=== PATIENT | male | born 1945 | race Caucasian/White ===

== ENCOUNTER 2018-08-01 13:54 | Outpatient (CLI) | payer OTHER ==
[2018-08-01 15:40] LABS: INR-International Normal Ratio 1.5; PTT 29.7 SEC (22.9-36.1); Prothrombin Time 17.9 SEC (12.0-14.7)
--- NOTE | 2018-08-01 15:45 | RAD ---
CHEST TWO VIEWS: History: Patient for preoperative evaluation. Comparison: 07-17-18 FINDINGS: Bilateral pleural effusion with costophrenic angle blunting, slightly worse on the left side but show ing some improvement from prior study. Old granulomatous disease. Heart size is borderline enlarged. No overt edema or confluent pneumonia. IMPRESSION: Bilateral costophrenic angle blunting showing some improvement from prior study. Borderline cardiomeg madai. Old granulomatous disease. Atherosclerosis of the aorta. Somewhat low position right humeral hea d relative to the glenoid raising concern for the possibility of dislocation/subluxation of the right shoulder joint. If there is clinical concern in this regard, a follow up right shoulder plain film e xamination should be considered. This is stable from the prior study. POS: [facility]
[2018-08-01 15:54] LABS: Anion Gap 10 mmol/L (10-20); BUN (Urea Nitrogen) 16 mg/dL (8.4-25.7); Calc. Creatinine Clearance 0 mL/min (70-130); Calcium 10.7 mg/dL (7.8-10.44); Carbon Dioxide 31 mmol/L (23-31); Chloride 102 mmol/L (98-107); Estimated GFR-MDRD 89; Glucose 112 mg/dL (83-110); Potassium 3.9 mmol/L (3.5-5.1); Sodium 139 mmol/L (136-145)
[2018-08-01 16:06] LABS: Mean Corpuscular HGB CONC 31.8 g/dL (32.0-36.0); Mean Platelet Volume 8.5 fL (7.4-10.4); Platelet Count 168 thou/uL (130-400); RBC Distribution Width 14.6 % (11.5-14.5); White Blood Cell (WBC) Count 7.2 thou/uL (4.8-10.8)
[2018-08-01 16:43] LABS: #Eosinphils 0.2 thou/uL (0.0-0.7); #Lymphocytes 1.5 thou/uL (1.20-3.40); #Monocytes 0.8 thou/uL (0.11-0.59); #Neutrophils 4.7 thou/uL (1.40-6.50); %Basophils 0.1 % (0.0-1.0); %Eosinophils 2.8 % (0.0-10.0); %Lymphocytes 21.4 % (21.0-51.0); %Monocytes 10.4 % (0.0-10.0); %Neutrophils 65.2 % (42.0-75.0); Anisocytosis SLIGHT = 6-15 cells (100X) (0-5/hpf); MDiff Complete? YES; Macrocytosis SLIGHT = 6-15 cells (100X) (0-5/hpf); Platelet Morphology Comment Appears Adequate
--- NOTE | 2018-08-02 21:06 | EKG ---
Test Reason : Blood Pressure : / mmHG Vent. Rate : 134 BPM Atrial Rate : 052 BPM P-R Int : 000 ms QRS Dur : 114 ms QT Int : 386 ms P-R-T Axes : 000 -64 106 degrees QTc Int : 576 ms Atrial fibrillation with rapid ventricular response Left axis deviation Incomplete right bundle branch block Possible Anterior infarct (cited on or before 11-JUN-2012) Abnormal ECG When compared with ECG of 11-JUN-2012 12:09, Atrial fibrillation has replaced Sinus rhythm Vent. rate has increased BY 85 BPM Non-specific change in ST segment in Anterior leads Nonspecific T wave abnormality now evident in Anterolateral leads Confirmed by Ramakrishna THOMAS ([id number]) on 08/02/2018 9:06:07 PM Referred By: MARTHA Confirmed By:Ramakrishna THOMAS
== END 2018-08-01 13:55 | disposition home or self-care (01) ==
LOC: LABBT 13:54
PROVIDERS: ATTEND Internal Medicine Cardiovascular Disease
DX: Z01.818 Encounter for other preprocedural examination (principal); I48.0 Paroxysmal atrial fibrillation
CPT/HCPCS: 71046; 80048; 85025; 85610; 85730; 93005; 93010

== ENCOUNTER 2018-08-02 09:29 | Day surgery (SDC) | payer OTHER ==
[2018-08-01 14:27] VITALS: BMI 30.1
[2018-08-02] MEDS ORDERED: PROPOFOL 40 ML ONE (10:37)
[2018-08-02 11:18] LABS: Cardiac Risk 2.6 (Less than 4.5)
[2018-08-02] MEDS ORDERED: PROPOFOL 200 MG/20 ML VIAL ONE (16:12)
--- NOTE | 2018-08-02 17:09 | ECHO ---
CARDIOLOGY PROCEDURE NOTE: Date: 08/02/18 PROCEDURE: Transesophageal echocardiogram. INDICATION FOR PROCEDURE: This is a 73-year-old gentleman who was found to have atrial fibrillation and rapid ventricular respo nse last week in the office. He presented again this week after being started on digoxin and diltiaze m. He was found to have the heart rate somewhat slower. Echocardiogram was performed and heart rate w as still in the 130s. Echocardiogram was performed and showed ejection fraction to be about 25-30%. H e was advised to undergo early transesophageal echocardiogram and possible cardioversion due to the d ecrease in left ventricular systolic function. He was seen in the recovery area today to undergo the procedure. DESCRIPTION OF PROCEDURE: The patient was taken to the recovery area, where he underwent short-acting propofol. The transesopha geal echo probe was easily passed down the distal esophagus. FINDINGS: 1. Severe decrease in left ventricular systolic function. Ejection fraction 25-30%. 2. Smoke formation of left atrium, left atrial appendage, and left ventricle. There appears to be qu estionable small thrombus in the apex of the left atrial appendage. 3. Severe mitral valve regurgitation. 4. Severe tricuspid valve regurgitation. 5. Mild aortic valve regurgitation. Patient tolerated the procedure well, without difficulties or complications. No electrical cardiovers ion performed due to possible thrombus in left atrial appendage. Patient will be discharged to home. IMPRESSION: Possible thrombus in the left atrial appendage. No cardioversion will be performed at this time. [
--- NOTE | 2018-08-03 05:07 | DIS ---
DATE OF ADMISSION: 08/02/2018 DATE OF DISCHARGE: 08/02/2018 REASON FOR VISIT: Outpatient visit was due to a possible PATY cardioversion. The patient underwent the PATY today, but was not able to undergo cardioversion as there seems to be a small thrombus in the left atrial appendage with significant smoke formation in the left atrial appendage, left atrium as well as left ventricle. His diagnosis includes atrial fibrillation with rapid ventricular response. The plan was to do cardioversion as he also has severe decrease in left ventricular systolic function. He has a history of coronary artery disease. He is status post angioplasty and stent placement. He also has a history of hypertension and also a history of bradycardia. Discharge diagnosis, same. He continues to be in atrial fibrillation. Procedure in hospital included a transesophageal echocardiogram in the outpatient facility. DISCHARGE MEDICATIONS: Include, 1. Centrum Silver vitamins. 2. Lipogen. 3. Furosemide 20 mg a day. 4. Potassium 20 mEq a day. 5. Digoxin 0.25 mg daily. 6. Eliquis 5 mg b.i.d. 7. Cartia 180 mg daily. 8. Folic acid 2 mg two times a day with food. 9. Allopurinol 300 mg daily. 10. Plavix 75 mg a day. 11. Lisinopril/hydrochlorothiazide 20/25 once a day. 12. Metoprolol 25 mg b.i.d. He also takes, 1. Folic acid. 2. L-thyroxine 50 mcg daily. 3. Doxazosin 4 mg a day. 4. Simvastatin 40 mg a day. 5. Methotrexate 4 mL every weekend. 6. Cyanocobalamin 1 mL injections as directed. FOLLOWUP: His followup will be with me next week in the office. He will continue routing to follow up with the primary care physician. HOSPITAL COURSE: This is a very unfortunate 73-year-old gentleman, was found to have atrial fibrillation with rapid ventricular response in the office last week. He was advised to be seen again this week in the office for discussion of possible cardioversion. He had been started on Eliquis and also digoxin for rate control. He was seen in the office yesterday and was found to have atrial fibrillation with rapid ventricular response, which has continued and also ejection fraction was found to be about of 25% to 30%. He was advised to undergo a transesophageal cardiogram with possible early conversion of his atrial fibrillation since ejection fraction previously had been normal and now was significantly decreased. He was taken to the recovery area today where he was given short-acting propofol and he was found to have ejection fraction of about 25% to 30% with what appeared to be possible some thrombus in the left atrial appendage at the apex with smoke formation of the left atrium, left ventricle as well. He has severe mitral and tricuspid valve regurgitation. He underwent the procedure easily without complications or difficulties. After being given short acting propofol, esophageal probe was easily passed. At this time, we will hold off on the cardioversion since he appears to have small thrombus for which we will continue the Eliquis and I will see him back in the office within a week. We will wait an another 2 to 3 weeks prior to attempted cardioversion. He will be referred to nurse coordinator for possible repeat ablation of the atrial fibrillation. If he remains stable, he will be discharged home within the next 1 to 2 hours. The new medication will be started. It will be metoprolol 25 mg b.i.d. Job ID: [id number] [facility]
== END 2018-08-02 13:12 | disposition home or self-care (01) ==
LOC: CCL 09:29
PROVIDERS: ATTEND Internal Medicine Cardiovascular Disease
PROC: B246ZZ4 Ultrasonography of Right and Left Heart, Transesophageal (ICD-10-PCS; principal; 2018-08-02)
DX: I48.0 Paroxysmal atrial fibrillation (principal); I34.0 Nonrheumatic mitral (valve) insufficiency; I36.1 Nonrheumatic tricuspid (valve) insufficiency; I35.1 Nonrheumatic aortic (valve) insufficiency; I25.10 Atherosclerotic heart disease of native coronary artery without angina pectoris; I10 Essential (primary) hypertension; E78.00 Pure hypercholesterolemia, unspecified; Z90.89 Acquired absence of other organs; Z95.5 Presence of coronary angioplasty implant and graft; Z88.8 Allergy status to other drugs, medicaments and biological substances; Z79.01 Long term (current) use of anticoagulants; Z79.02 Long term (current) use of antithrombotics/antiplatelets; Z79.899 Other long term (current) drug therapy; Z98.890 Other specified postprocedural states
CPT/HCPCS: 80061; 92960; 93312; J2704

== ENCOUNTER 2018-08-30 13:16 | Outpatient (CLI) | payer OTHER ==
[2018-08-30 15:07] LABS: #Basophils 0.1 thou/uL (0.0-0.2); #Eosinphils 0.4 thou/uL (0.0-0.7); #Lymphocytes 1.7 thou/uL (1.20-3.40); #Neutrophils 4.8 thou/uL (1.40-6.50); %Basophils 0.8 % (0.0-1.0); %Eosinophils 5.3 % (0.0-10.0); %Lymphocytes 21.7 % (21.0-51.0); %Monocytes 12.4 % (0.0-10.0); %Neutrophils 59.9 % (42.0-75.0); Hemoglobin 15.2 g/dL (14.0-18.0); Mean Corpuscular HGB CONC 32.5 g/dL (32.0-36.0); Mean Corpuscular Hemoglobin 35.2 pg (27.0-31.0); Mean Platelet Volume 8.5 fL (7.4-10.4); Platelet Count 217 thou/uL (130-400); RBC Distribution Width 14.9 % (11.5-14.5); Red Blood Cell (RBC) Count 4.33 mill/uL (4.70-6.10); White Blood Cell (WBC) Count 7.9 thou/uL (4.8-10.8)
[2018-08-30 15:25] LABS: Anion Gap 12 mmol/L (10-20); BUN (Urea Nitrogen) 15 mg/dL (8.4-25.7); Calc. Creatinine Clearance 0 mL/min (70-130); Calcium 10.5 mg/dL (7.8-10.44); Carbon Dioxide 29 mmol/L (23-31); Chloride 103 mmol/L (98-107); Estimated GFR-MDRD 83; Glucose 80 mg/dL (83-110); Potassium 3.9 mmol/L (3.5-5.1); Sodium 140 mmol/L (136-145)
== END 2018-08-30 13:17 | disposition home or self-care (01) ==
LOC: LABBT 13:16
PROVIDERS: ATTEND Internal Medicine Cardiovascular Disease
DX: Z01.818 Encounter for other preprocedural examination (principal); I48.0 Paroxysmal atrial fibrillation
CPT/HCPCS: 80048; 85025; 93005; 93010

== ENCOUNTER 2018-09-06 05:46 | Day surgery (SDC) | payer OTHER ==
[2018-08-30 13:23] VITALS: BMI 27.5
[2018-09-06] MEDS ORDERED: PROPOFOL 20 ML ONE (06:25)
--- NOTE | 2018-09-06 10:07 | DIS ---
DATE OF ADMISSION: 09/06/2018 DATE OF DISCHARGE: 09/06/2018 He was seen in the outpatient facility from 09/05/2018 to 09/06/2018 to undergo a transesophageal echocardiogram and electrocardioversion of atrial fibrillation. OTHER DIAGNOSES: Include; 1. Coronary artery disease. 2. Atrial fibrillation. 3. Cardiomyopathy. DISCHARGE DIAGNOSES: Include; 1. Coronary artery disease. 2. Atrial fibrillation. 3. Cardiomyopathy. He was successfully converted back to normal sinus rhythm with one attempt at 300 joules after being given short acting propofol. He tolerated the procedure well. There were no difficulties or complications. His medications will remain the same. DISCHARGE MEDICATIONS: Include; 1. Allopurinol. 2. Eliquis 5 mg b.i.d. 3. Vitamin D3. 4. Plavix 75 mg a day. 5. Vitamin B12. 6. Digoxin 0.25 mg a day. 7. Diltiazem 180 mg extended release tablet once a day. 8. Doxazosin. 9. Folic acid. 10. Lasix 20 mg a day. 11. Levothyroxine 50 mcg daily. 12. Lipogen. 13. Lisinopril/hydrochlorothiazide 20/25 once a day. 14. Methotrexate every seven days. 15. Toprol-XL 25 mg b.i.d. 16. Multivitamins with folic acid and iron. His followup will be with me in 2 to 3 weeks in the office. HOSPITAL COURSE: This is a very pleasant gentleman, who was seen in the office a few weeks ago, had developed atrial fibrillation with rapid ventricular response and congestive heart failure. Echocardiogram showed decrease in left ventricular function. He was advised to undergo electrocardioversion several weeks ago. When he did undergo a PATY, he was found to have thrombus in the left atrial appendage. He then was continued on Eliquis and we saw him back today for a repeat transesophageal echocardiogram to determine whether or not he had any more thrombus in the left atrial appendage. This was done, he did not have a left atrial appendage thrombus and he underwent successful cardioversion of his atrial fibrillation, back in normal sinus rhythm with one attempt to 200 joules. He did have some bradycardia during the procedure. His heart rate was in the 50s, seemed to be tolerating well. Job ID: [id number]
[2018-09-06] MEDS ORDERED: PROPOFOL 200 MG/20 ML VIAL ONE (14:12)
--- NOTE | 2018-09-06 17:03 | EKG ---
Test Reason : POST CARDIOVERSION Blood Pressure : / mmHG Vent. Rate : 051 BPM Atrial Rate : 051 BPM P-R Int : 238 ms QRS Dur : 118 ms QT Int : 424 ms P-R-T Axes : 054 -59 115 degrees QTc Int : 390 ms Sinus bradycardia with 1st degree A-V block Incomplete right bundle branch block Left anterior fascicular block Cannot rule out Inferior infarct (masked by fascicular block?) , age undetermined Abnormal ECG When compared with ECG of 30-AUG-2018 13:52, (Unconfirmed) Sinus rhythm has replaced Atrial fibrillation Incomplete right bundle branch block has replaced Right bundle branch block Minimal criteria for Inferior infarct are now Present Confirmed by BING COTTER ([id number]) on 09/06/2018 5:03:16 PM Referred By: MARTHA Confirmed By:BING COTTER
--- NOTE | 2018-09-07 17:50 | ECHO ---
DATE OF PROCEDURE: 09/06/18 INDICATION FOR PROCEDURE: This is an 73-year-old patient with atrial fibrillation. He was advised to undergo electrocardioversi on of the atrial fibrillation back to normal sinus. He has been on Eliquis for over a month. He was taken to the recovery area where he underwent short acting propofol. The transesophageal probe was passed down the distal esophagus. IMPRESSION: 1. Moderate to severe decrease in left ventricular systolic function. Ejection fraction estimate d at 35 to 40%. 2. Left atrial dilatation at 4.9 cm. 3. Smoke formation left atrium and left atrial appendage. Flow in the left atrial appendage was 3 to 4 m/s. 4. Severe mitral valve regurgitation. Moderate to severe tricuspid valve regurgitation. 5. Trace to mild aortic valve regurgitation. There were no complications or difficulties encountered.
--- NOTE | 2018-09-07 17:52 | OP ---
DATE OF PROCEDURE: 09/06/18 INDICATION FOR PROCEDURE: This is an 73-year-old patient with atrial fibrillation. He was advised to undergo electrocardioversi on of the atrial fibrillation back to normal sinus. He has been on Eliquis for over a month. He was taken to the recovery area where he underwent short acting propofol. He was advised to undergo electrocardioversion of his atrial fibrillation back to normal sinus rhythm after he had undergone a transesophageal echocardiogram prior to undergoing the procedure. He had pr eviously undergone transesophageal cardiogram and found to have a small thrombus in the left atrial a ppendage. He underwent repeat transesophageal cardiogram today. Had no evidence of left atrial or lef t atrial appendage thrombus. Using one attempt at 300 joules he was successfully converted back to a sinus bradycardia. Heart rates in the 50s. He tolerated the procedure well without difficulties or co mplications. IMPRESSION: Successful electrocardioversion of atrial fibrillation back to sinus rhythm.
== END 2018-09-06 09:16 | disposition home or self-care (01) ==
LOC: CCL 05:46
PROVIDERS: ATTEND Internal Medicine Cardiovascular Disease
PROC: B245ZZ4 Ultrasonography of Left Heart, Transesophageal (ICD-10-PCS; principal; 2018-09-06)
PROC: 5A2204Z Restoration of Cardiac Rhythm, Single (ICD-10-PCS; principal; 2018-09-06)
DX: I48.0 Paroxysmal atrial fibrillation (principal); I11.0 Hypertensive heart disease with heart failure; I50.9 Heart failure, unspecified; I42.9 Cardiomyopathy, unspecified; I34.0 Nonrheumatic mitral (valve) insufficiency; I25.10 Atherosclerotic heart disease of native coronary artery without angina pectoris; E78.00 Pure hypercholesterolemia, unspecified; Z79.899 Other long term (current) drug therapy; Z87.891 Personal history of nicotine dependence; Z98.61 Coronary angioplasty status
CPT/HCPCS: 92960; 93005; 93010; 93312; J2704

== ENCOUNTER 2018-10-11 14:43 | Outpatient (CLI) | payer OTHER ==
--- NOTE | 2018-10-14 17:57 | EKG ---
Test Reason : Blood Pressure : / mmHG Vent. Rate : 068 BPM Atrial Rate : 357 BPM P-R Int : 000 ms QRS Dur : 118 ms QT Int : 430 ms P-R-T Axes : 000 -73 136 degrees QTc Int : 457 ms Atrial fibrillation Left axis deviation Pulmonary disease pattern Right bundle branch block T wave abnormality, consider lateral ischemia or digitalis effect Abnormal ECG When compared with ECG of 06-SEP-2018 08:11, Atrial fibrillation has replaced Sinus rhythm Right bundle branch block has replaced Incomplete right bundle branch block Confirmed by GAURI CONLEY ([id number]) on 10/14/2018 5:56:50 PM Referred By: MARTHA Confirmed By:GAURI CONLEY
== END 2018-10-11 14:44 | disposition home or self-care (01) ==
LOC: LABBT 14:43
PROVIDERS: ATTEND Internal Medicine Cardiovascular Disease
DX: Z01.818 Encounter for other preprocedural examination (principal); I48.0 Paroxysmal atrial fibrillation
CPT/HCPCS: 93005; 93010

== ENCOUNTER 2018-10-17 07:52 | Day surgery (SDC) | payer OTHER ==
[2018-10-11 15:09] VITALS: BMI 28.1
[2018-10-17] MEDS ORDERED: PROPOFOL 200 MG/20 ML VIAL ONE (11:47)
[2018-10-17] MEDS ORDERED: Lidocaine 1% PF 5 ML VIAL ONE (11:47)
--- NOTE | 2018-10-17 21:25 | EKG ---
Test Reason : POST CARDIOVERSION Blood Pressure : / mmHG Vent. Rate : 048 BPM Atrial Rate : 048 BPM P-R Int : 238 ms QRS Dur : 120 ms QT Int : 488 ms P-R-T Axes : 058 -58 141 degrees QTc Int : 435 ms Marked sinus bradycardia with sinus arrhythmia with 1st degree A-V block Right bundle branch block Left anterior fascicular block Bifascicular block T wave abnormality, consider lateral ischemia Abnormal ECG Confirmed by CLAY VORA, DR. Portillo ([id number]) on 10/17/2018 9:25:07 PM Referred By: MARTHA Confirmed By:DR. Lindsey WILLIAMSON MD
--- NOTE | 2018-10-18 06:05 | DIS ---
DATE OF ADMISSION: 10/17/2018 DATE OF DISCHARGE: 10/17/2018 ADMISSION DIAGNOSIS: Atrial fibrillation, coronary artery disease, new onset congestive heart failure with cardiomyopathy and hypertension. DISCHARGE DIAGNOSIS: Atrial fibrillation, coronary artery disease, new onset congestive heart failure with cardiomyopathy and hypertension. He said he has been converted from the atrial fibrillation to sinus rhythm. PROCEDURE IN HOSPITAL: Include electrocardioversion of atrial fibrillation back to sinus rhythm with 1 attempt to 200 joules. He is to followup with me in 2 weeks in the office. He will continue his routine followups with his primary care physician, also with Dr. Lopez as indicated by the engineering operator. DISCHARGE MEDICATIONS: Include: 1. Potassium 20 mEq daily. 2. Cardizem 180 mg once daily. 3. Furosemide 20 mg daily. 4. Digoxin 0.25 mg. I would decrease this dose to half tablet daily. 5. He had been on metoprolol 25 mg b.i.d. We will discontinue this medication due to the bradycardia. 6. Eliquis 5 mg b.i.d. 7. Amiodarone 200 mg b.i.d., and they will taper this dose down to 200 mg once daily. 8. Folic acid 2 mg with food. 9. Allopurinol 300 mg daily. 10. Plavix 75 mg daily. 11. Lisinopril/hydrochlorothiazide 20/25 once daily. 12. Centrum Silver vitamins. 13. Lipogen. 14. He also takes simvastatin 40 mg daily. 15. Methotrexate 4 mL every weekend. 16. Cyanocobalamin once a month 1 mL. 17. He also takes doxazosin 4 mg q.p.m. 18. Levothyroxine 50 mcg q.p.m. HOSPITAL COURSE: This is a very pleasant 73-year-old gentleman who has had atrial fibrillation, which has been persistent. He has had ablations in the past. He underwent a cardioversion recently back in August and then again converted back to atrial fibrillation, was started on amiodarone and was again advised to undergo a repeat attempt at electrocardioversion of his atrial fibrillation. He was taken to the recovery area where he underwent the procedure without any difficulties or complications. If he remains stable, he will be discharged in the next 1-2 hours. I will see him back in the office in about 2 weeks. Job ID: [id number]
--- NOTE | 2018-10-23 15:36 | OP ---
DATE OF PROCEDURE: 10/17/2018 INDICATIONS FOR PROCEDURE: A 73-year-old patient with persistent atrial fibrillation. He has undergone ablation in the past. He recently underwent a cardioversion. He was successfully converted to sinus rhythm, then again converted back to atrial fibrillation and was seen by an ply splicer, started on amiodarone, and has now been advised to undergo again a repeat cardioversion to see if he will remain in sinus rhythm with the use of the amiodarone. PROCEDURE: He was taken to the recovery area, where he underwent short-acting propofol anesthesia and using one attempt to 200 joules, he was successfully converted back to a sinus rhythm. He was somewhat bradycardic with the heart rates in the 40s, but has remained in sinus rhythm. There were no complications or difficulties encountered. IMPRESSION: Successful cardioversion of atrial fibrillation to normal sinus rhythm. Job ID: [id number]
== END 2018-10-17 10:44 | disposition home or self-care (01) ==
LOC: CCL 07:52
PROVIDERS: ATTEND Internal Medicine Cardiovascular Disease
PROC: 5A2204Z Restoration of Cardiac Rhythm, Single (ICD-10-PCS; principal; 2018-10-17)
DX: I48.1 Persistent atrial fibrillation (principal); I25.10 Atherosclerotic heart disease of native coronary artery without angina pectoris; I11.0 Hypertensive heart disease with heart failure; I50.9 Heart failure, unspecified; I42.9 Cardiomyopathy, unspecified; E78.5 Hyperlipidemia, unspecified; M19.90 Unspecified osteoarthritis, unspecified site; M10.9 Gout, unspecified; Z87.891 Personal history of nicotine dependence; Z79.01 Long term (current) use of anticoagulants; Z79.02 Long term (current) use of antithrombotics/antiplatelets; Z79.899 Other long term (current) drug therapy; Z88.8 Allergy status to other drugs, medicaments and biological substances; Z95.5 Presence of coronary angioplasty implant and graft
CPT/HCPCS: 92960; 93005; 93010; J2001; J2704

== ENCOUNTER 2020-02-16 08:12 | Outpatient (CLI) | payer OTHER ==
--- NOTE | 2020-02-16 13:36 | RAD ---
EXAM: Chest 2 views: HISTORY: Preoperative radiograph COMPARISON: 08/01/2018 FINDINGS: There is a normal-sized cardiomediastinal silhouette. Calcified granuloma projects over the left lowe r lobe. No infiltrate or pleural effusion are seen. The bones are unremarkable. IMPRESSION: No evidence of acute cardiopulmonary disease
[2020-02-16 16:43] LABS: #Basophils 0.1 thou/uL (0.0-0.2); #Eosinphils 0.1 thou/uL (0.0-0.7); #Lymphocytes 1.5 thou/uL (1.20-3.40); #Monocytes 0.8 thou/uL (0.11-0.59); %Basophils 0.7 % (0.0-1.0); %Eosinophils 1.5 % (0.0-10.0); %Lymphocytes 20.5 % (21.0-51.0); %Monocytes 10.5 % (0.0-10.0); %Neutrophils 66.8 % (42.0-75.0); Hemoglobin 14.9 g/dL (14.0-18.0); MDiff Complete? YES; Macrocytosis SLIGHT = 6-15 cells (100X) (0-5/hpf); Mean Corpuscular HGB CONC 33.4 g/dL (32.0-36.0); Mean Corpuscular Hemoglobin 36.6 pg (27.0-31.0); Platelet Count 171 thou/uL (130-400); Platelet Morphology Comment Appears Adequate; Polychromasia SLIGHT = 2-3 cells (100X) (0-2/hpf); RBC Distribution Width 13.2 % (11.5-14.5); Red Blood Cell (RBC) Count 4.08 mill/uL (4.70-6.10); White Blood Cell (WBC) Count 7.5 thou/uL (4.8-10.8)
[2020-02-16 16:47] LABS: Anion Gap 12 mmol/L (10-20); BUN (Urea Nitrogen) 16 mg/dL (8.4-25.7); Calc. Creatinine Clearance 0 mL/min (70-130); Carbon Dioxide 28 mmol/L (23-31); Chloride 103 mmol/L (98-107); Estimated GFR-MDRD 88; Potassium 3.5 mmol/L (3.5-5.1); Sodium 139 mmol/L (136-145)
[2020-02-16 16:48] LABS: Calcium 9.5 mg/dL (7.8-10.44); Glucose 101 mg/dL (83-110)
[2020-02-17 14:18] LABS: SARS-CoV-2 MS2 Positive; SARS-CoV-2 N Gene Negative; SARS-CoV-2 S Gene Negative; SARS-CoV-2 by NAA Not Detected (NotDetected); SARS-CoV-2 orf1ab Negative
--- NOTE | 2020-02-17 15:44 | EKG ---
Test Reason : Blood Pressure : / mmHG Vent. Rate : 044 BPM Atrial Rate : 044 BPM P-R Int : 246 ms QRS Dur : 130 ms QT Int : 542 ms P-R-T Axes : 048 -77 059 degrees QTc Int : 463 ms Marked sinus bradycardia with 1st degree A-V block Left axis deviation Right bundle branch block Abnormal ECG Confirmed by ALBERT CAMILO ([id number]) on 02/17/2020 3:44:03 PM Referred By: STEMI Confirmed By:ALBERT CAMILO
== END 2020-02-16 08:13 | disposition home or self-care (01) ==
LOC: LABBT 08:12 → SCSRAD 08:13
PROVIDERS: ATTEND Specialist
DX: Z01.818 Encounter for other preprocedural examination (principal); Z11.59 Encounter for screening for other viral diseases; K60.2 Anal fissure, unspecified; K64.5 Perianal venous thrombosis
CPT/HCPCS: 71046; 80048; 85025; 87635; 93005; 93010; U0003

== ENCOUNTER 2022-08-04 14:59 | Day surgery (SDC) | payer MEDICARE ==
[2022-08-04] MEDS ORDERED: Phenylephrine 2.5% Ophth Soln 5 ML BOT ONE (15:29)
[2022-08-04] MEDS ORDERED: Cyclopentolate 1% Opth Drop 2 ML BOT ONE (15:29)
[2022-08-04] MEDS ORDERED: Fluorouracil 100 MG, Enoxaparin 25 MG, EPINEPHrine 0.3 MG in Ophthalmic Irrigation Solu... IRR SCH (15:30)
[2022-08-04] MEDS ORDERED: Midazolam HCl 2 mg/2 ml Vial ONE (17:05)
[2022-08-04] MEDS ORDERED: fentaNYL PF 100 MCG/2 ML SYRINGE ONE (17:05)
[2022-08-04] MEDS ORDERED: CEFAZOLIN 1 GM VIAL ONE (17:46)
[2022-08-04] MEDS ORDERED: Triamcinolone 40 MG/ML VIAL ONE (17:46)
[2022-08-04] MEDS ORDERED: Maxitrol 0.1% Opth Oint 3.5 GM TUBE ONE (17:46)
[2022-08-04] MEDS ORDERED: PROPOFOL 200 MG/20 ML VIAL ONE (17:46)
[2022-08-04] MEDS ORDERED: Bupivacaine 0.75% 10 ML VIAL ONE (17:46)
[2022-08-04] MEDS ORDERED: Lidocaine 1% PF 5 ML VIAL ONE (17:46)
[2022-08-04] MEDS ORDERED: Lidocaine 4% PF 5 ML AMP ONE (17:46)
== END 2022-08-04 19:45 | disposition home or self-care (01) ==
LOC: SDC 14:59
PROVIDERS: ATTEND Ophthalmology Retina Specialist
PROC: 08T53ZZ Resection of Left Vitreous, Percutaneous Approach (ICD-10-PCS; principal; 2022-08-04)
DX: H33.012 Retinal detachment with single break, left eye (principal); Z98.41 Cataract extraction status, right eye; Z98.42 Cataract extraction status, left eye; Z96.1 Presence of intraocular lens
CPT/HCPCS: 67025; 93005; 93010; J0690; J1650; J2250; J2704; J3301; J3490

== ENCOUNTER 2022-09-21 06:57 | Day surgery (SDC) | payer MEDICARE, OTHER ==
[2022-09-20 09:44] VITALS: BMI 26.6
[~2022-09-21 06:57] MED LIST: Fluorouracil 100 MG, Enoxaparin 25 MG, EPINEPHrine 0.3 MG in Ophthalmic Irrigation Solu... IRR SCH; Midazolam HCl 2 mg/2 ml Vial ONE; fentaNYL PF 100 MCG/2 ML SYRINGE ONE
[2022-09-21] MEDS ORDERED: Phenylephrine 2.5% Ophth Soln 5 ML BOT ONE (07:46)
[2022-09-21] MEDS ORDERED: Cyclopentolate 1% Opth Drop 2 ML BOT ONE (07:46)
[2022-09-21] MEDS ORDERED: Bupivacaine 0.75% 10 ML VIAL ONE (08:40)
[2022-09-21] MEDS ORDERED: Triamcinolone 40 MG/ML VIAL ONE (08:40)
[2022-09-21] MEDS ORDERED: CEFAZOLIN 1 GM VIAL ONE (08:40)
[2022-09-21] MEDS ORDERED: Lidocaine 4% PF 5 ML AMP ONE (08:40)
[2022-09-21] MEDS ORDERED: Lidocaine 1% PF 5 ML VIAL ONE (08:40)
[2022-09-21] MEDS ORDERED: PROPOFOL 200 MG/20 ML VIAL ONE (08:40)
[2022-09-21] MEDS ORDERED: Maxitrol 0.1% Opth Oint 3.5 GM TUBE ONE (08:40)
== END 2022-09-21 11:11 | disposition home or self-care (01) ==
LOC: SDC 06:57
PROVIDERS: ATTEND Ophthalmology Retina Specialist
PROC: 08T53ZZ Resection of Left Vitreous, Percutaneous Approach (ICD-10-PCS; principal; 2022-09-21)
DX: H33.022 Retinal detachment with multiple breaks, left eye (principal); Z79.01 Long term (current) use of anticoagulants; Z79.82 Long term (current) use of aspirin; Z79.890 Hormone replacement therapy; Z79.899 Other long term (current) drug therapy; Z95.5 Presence of coronary angioplasty implant and graft
CPT/HCPCS: 67025; J0171; J0690; J1650; J2250; J2704; J3301; J3490; J9190

== ENCOUNTER 2024-07-24 08:33 | Outpatient (CLI) | payer MEDICARE, OTHER ==
[2024-07-24 10:33] LABS: #Basophils 0.04 10x3/uL (0.0-0.2); %Basophils 0.5 % (0.0-1.0); %Eosinophils 3.8 % (0.0-10.0); %Lymphocytes 23.2 % (21.0-51.0); %Monocytes 9.2 % (0.0-10.0); %Neutrophils 62.9 % (42.0-75.0); Hematocrit 44.7 % (42.0-52.0); Hemoglobin 14.9 g/dL (14.0-18.0); Mean Corpuscular HGB CONC 33.3 g/dL (32.0-36.0); Mean Corpuscular Hemoglobin 34.3 pg (27.0-31.0); Mean Corpuscular Volume 102.8 fL (78.0-98.0); Mean Platelet Volume 9.6 fL (7.4-10.4); Platelet Count 172 10x3/uL (130-400); RBC Distribution Width 13.9 % (11.5-14.5); Red Blood Cell (RBC) Count 4.35 mill/uL (4.70-6.10)
[2024-07-24 10:48] LABS: INR-International Normal Ratio 1.1; Prothrombin Time 13.8 sec (12.0-14.7)
[2024-07-24 11:04] LABS: Calc. Creatinine Clearance 0 mL/min (70-130); Estimated GFR 87
[2024-07-24 11:05] LABS: Anion Gap 12 mmol/L (10-20); BUN (Urea Nitrogen) 19 mg/dL (8.4-25.7); Calcium 10.3 mg/dL (7.8-10.44); Carbon Dioxide 29 mmol/L (23-31); Chloride 104 mmol/L (98-107); Glucose 82 mg/dL (83-110); Potassium 4.1 mmol/L (3.5-5.1); Sodium 141 mmol/L (136-145)
== END 2024-07-24 08:34 | disposition home or self-care (01) ==
LOC: LABBT 08:33
PROVIDERS: ATTEND Orthopaedic Surgery
DX: Z01.818 Encounter for other preprocedural examination (principal); M19.011 Primary osteoarthritis, right shoulder
CPT/HCPCS: 80048; 85025; 85610; 87081; 93005; 93010

== ENCOUNTER 2024-07-31 05:48 | Observation (INO) | payer MEDICARE, OTHER ==
[2024-07-24 09:15] VITALS: BMI 31.9
[2024-07-31] MEDS ORDERED: Rocuronium Bromide 10 MG/ML (10ML VIAL) ONE (06:14)
[2024-07-31] MEDS ORDERED: Norepinephrine 4 MG/4 ML VIAL ONE (06:17)
[2024-07-31] MEDS ORDERED: Vasopressin 20 UNITS/ML VIAL ONE (06:17)
[2024-07-31] MEDS ORDERED: fentaNYL PF 100 MCG/2 ML SYRINGE ONE ×2 (06:18→07:45)
[2024-07-31] MEDS ORDERED: Midazolam HCl 2 mg/2 ml Vial ONE (06:18)
[2024-07-31] MEDS ORDERED: Vancomycin (BATCH) 300 ML ONE (06:19)
[2024-07-31] MEDS ORDERED: Sodium Chloride 0.9% 100 ML ONE (06:19)
[2024-07-31] MEDS ORDERED: Tranexamic Acid 1,000 MG/10 ML VIAL ONE (06:19)
[2024-07-31] MEDS ORDERED: ePHEDrine Sulfate 50 MG/10 ML VIAL ONE (06:21)
[2024-07-31] MEDS ORDERED: CEFAZOLIN 2 GM VIAL ONE (06:52)
[2024-07-31] MEDS ORDERED: Ropivacaine 0.5% HCl/PF (150 MG/30 ML VIAL) ONE ×2 (06:55→08:19)
[2024-07-31] MEDS ORDERED: Ropivacaine 2% HCl/PF (20 MG/10 ML VIAL) ONE ×2 (06:55)
[2024-07-31] MEDS ORDERED: PROPOFOL 20 ML ONE (07:17)
[2024-07-31] MEDS ORDERED: Protamine Sulfate 50 MG/5 ML VIAL ONE (07:17)
[2024-07-31] MEDS ORDERED: HYDROcodone/Acetaminophen 10/325 mg Tablet PO PRN ×2 (08:15)
[2024-07-31] MEDS ORDERED: traMADol HCl 50 MG TAB PO PRN ×2 (08:15)
[2024-07-31] MEDS ORDERED: Promethazine HCl 25 MG/ML VIAL IM PRN (08:15)
[2024-07-31] MEDS ORDERED: Ondansetron PF 4 MG/2 ML Vial IVP PRN (08:15)
[2024-07-31] MEDS ORDERED: Ropivacaine 0.2% 550 ML 550 ML NERVE BLCK SCH (08:15)
[2024-07-31] MEDS ORDERED: fentaNYL 50 mcg/mL 1 mL Vial SLOW IVP PRN (08:15)
[2024-07-31] MEDS ORDERED: Ondansetron PF 4 MG/2 ML Vial ONE (09:03)
[2024-07-31] MEDS ORDERED: Dexamethasone 4 mg/ml Vial ONE (09:03)
[2024-07-31] MEDS ORDERED: SUGAMMADEX SODIUM 200 MG/2 ML VIAL ONE (09:05)
[2024-07-31] MEDS ORDERED: Acetaminophen 325 MG TAB PO PRN (09:45)
[2024-07-31] MEDS ORDERED: Bisacodyl 10 MG SUPP PR PRN (09:45)
[2024-07-31] MEDS ORDERED: diphenhydrAMINE 50 MG CAP PO PRN (09:45)
[2024-07-31] MEDS ORDERED: Methocarbamol 1 GM (10 mL) VIAL SLOW IVP PRN (09:45)
[2024-07-31] MEDS: Sodium Chloride 0.9% 1,000 ML IV SCH (13:53)
[2024-07-31] MEDS: Ketorolac Tromethamine 30 MG (1 mL) VIAL IVP SCH (13:53)
[2024-07-31] MEDS: CEFAZOLIN 2 GM in Sodium Chloride 0.9% 100 ML IVPB SCH (15:35)
[2024-08-01 09:45] VITALS: BP 138/82; TEMP 97
[2024-08-01] MEDS ORDERED: Aspirin 81 mg Enteric Coated Tablet PO SCH (21:00)
== END 2024-08-01 14:00 | disposition home or self-care (01) ==
LOC: SDC 05:48 → SURG B 13:39
PROVIDERS: ADMIT Orthopaedic Surgery; ATTEND Orthopaedic Surgery
PROC: 0RRJ00Z Replacement of Right Shoulder Joint with Reverse Ball and Socket Synthetic Substitute, Open Approach (ICD-10-PCS; principal; 2024-07-31)
PROC: 0LS30ZZ Reposition Right Upper Arm Tendon, Open Approach (ICD-10-PCS; 2024-07-31)
PROC: 3E0T3BZ Introduction of Anesthetic Agent into Peripheral Nerves and Plexi, Percutaneous Approach (ICD-10-PCS; 2024-07-31)
DX: M19.011 Primary osteoarthritis, right shoulder (principal); S43.004A Unspecified dislocation of right shoulder joint, initial encounter; M75.111 Incomplete rotator cuff tear or rupture of right shoulder, not specified as traumatic; M10.9 Gout, unspecified; I10 Essential (primary) hypertension; I48.91 Unspecified atrial fibrillation; I25.10 Atherosclerotic heart disease of native coronary artery without angina pectoris; E03.9 Hypothyroidism, unspecified; E78.5 Hyperlipidemia, unspecified; Z95.0 Presence of cardiac pacemaker; Z85.46 Personal history of malignant neoplasm of prostate; Z96.653 Presence of artificial knee joint, bilateral; Z85.048 Personal history of other malignant neoplasm of rectum, rectosigmoid junction, and anus; Z95.5 Presence of coronary angioplasty implant and graft; Z79.82 Long term (current) use of aspirin; X58.XXXA Exposure to other specified factors, initial encounter
CPT/HCPCS: 23430; 23472; 64416; 97110 ×2; 97116 ×2; 97535; A4306; C1713 ×4; C1776 ×2; J1100; J1885 ×2; J2405; J2704; J2795 ×3; J3370; J7030; J2250; J2720

== ENCOUNTER 2024-08-04 09:34 | Emergency (ER) | payer MEDICARE, OTHER ==
[2024-08-04 10:56] LABS: #Basophils 0.03 10x3/uL (0.0-0.2); %Basophils 0.3 % (0.0-1.0); %Eosinophils 3.7 % (0.0-10.0); %Lymphocytes 12.4 % (21.0-51.0); %Neutrophils 71.2 % (42.0-75.0); Hematocrit 37.3 % (42.0-52.0); Hemoglobin 12.9 g/dL (14.0-18.0); Mean Corpuscular HGB CONC 34.6 g/dL (32.0-36.0); Mean Corpuscular Hemoglobin 34.5 pg (27.0-31.0); Mean Corpuscular Volume 99.7 fL (78.0-98.0); Mean Platelet Volume 9.8 fL (7.4-10.4); Platelet Count 160 10x3/uL (130-400); RBC Distribution Width 13.5 % (11.5-14.5); Red Blood Cell (RBC) Count 3.74 mill/uL (4.70-6.10)
[2024-08-04 11:15] LABS: ALT (SGPT) 24 U/L (8-55); AST (SGOT) 34 U/L (5-34); Albumin 2.6 g/dL (3.4-4.8); Alkaline Phosphatase 64 U/L (40-110); Anion Gap 12 mmol/L (10-20); BUN (Urea Nitrogen) 21 mg/dL (8.4-25.7); Bilirubin, Total 1.1 mg/dL (0.2-1.2); Calc. Creatinine Clearance 0 mL/min (70-130); Calcium 9.6 mg/dL (7.8-10.44); Carbon Dioxide 27 mmol/L (23-31); Chloride 103 mmol/L (98-107); Estimated GFR 86; Globulin 3.8 g/dL (2.4-3.5); Glucose 93 mg/dL (83-110); Potassium 3.6 mmol/L (3.5-5.1); Protein, Total 6.4 g/dL (5.8-8.1); Sodium 138 mmol/L (136-145)
== END 2024-08-04 13:26 | disposition home or self-care (01) ==
LOC: ERS 09:34
DX: Z48.01 Encounter for change or removal of surgical wound dressing (principal); I10 Essential (primary) hypertension
CPT/HCPCS: 36415; 80053; 85025; 99283